=== PATIENT | male | born 1955 | race Caucasian/White ===

== ENCOUNTER → 2016-12-09 | Outpatient (CLI) | payer OTHER ==
[~2016-12-09] MED LIST: HYDR25TA5 PO; NAPR500T PO
--- NOTE | 2016-12-09 09:05 | RADRPT ---
EXAM DATE/TIME: 12/09/2016 08:17 [facility] COMPARISON: No previous studies available for comparison. INDICATIONS : No known injury severe lower back pain MEDICAL HISTORY : Arthritis. SURGICAL HISTORY : None. ENCOUNTER: Initial ACUITY: >1 year PAIN SCORE: 10/10 LOCATION: Lower back FINDINGS: There are five non-rib bearing vertebral bodies. The vertebral bodies are in normal alignment withou t evidence of subluxation or scoliosis. Diffuse mild degenerative changes. The posterior elements ar e intact without evidence of spondylolysis. The pedicles are intact. Bony mineralization is normal. No fracture is identified. CONCLUSION: 1. Mild degenerative changes without fracture. Ethan Rollins MD on December 09, 2016 at 9:03 Board Certified Radiologist. This report was verified electronically.
--- NOTE | 2016-12-09 09:11 | RADRPT ---
EXAM DATE/TIME: 12/09/2016 08:17 [facility] COMPARISON: No previous studies available for comparison. INDICATIONS : No known injury severe pain left hip. MEDICAL HISTORY : Arthritis. SURGICAL HISTORY : None. ENCOUNTER: Initial ACUITY: >1 year PAIN SCORE: 10/10 LOCATION: Left Hip FINDINGS: There are extensive degenerative changes about the left hip with bone articulating with bone and subc hondral collapse. Fracture is not appreciated. CONCLUSION: Degenerative change without fracture.. Ricardo Saunders MD FACR on December 09, 2016 at 9:09 Board Certified Radiologist. This report was verified electronically.
--- NOTE | 2016-12-09 09:15 | RADRPT ---
EXAM DATE/TIME: 12/09/2016 08:17 [facility] COMPARISON: No previous studies available for comparison. INDICATIONS : No known injury severe hip pain unable to walk very well. MEDICAL HISTORY : Arthritis. SURGICAL HISTORY : None. ENCOUNTER: Initial ACUITY: >1 year PAIN SCORE: 10/10 LOCATION: Right Hip FINDINGS: Extensive degenerative changes are present about the right hip with bone articulating with bone. Ali gnment is anatomic. Fractures is not appreciated. CONCLUSION: Degenerative changes, negative for fracture.. Ricardo Saunders MD FACR on December 09, 2016 at 9:10 Board Certified Radiologist. This report was verified electronically.
== END ==
LOC: HRAD 07:36
PROVIDERS: ATTEND Family Medicine
DX: M25.559 Pain in unspecified hip (principal); G89.29 Other chronic pain; M54.5 Low back pain
CPT/HCPCS: 72110; 73502

== ENCOUNTER 2018-02-10 06:35 | Observation (INO) | payer OTHER ==
[2018-02-10] VITALS (11 sets, daily range): BP systolic 125–184; BP diastolic 73–105; PULSE 82–102; RESP 17–18; TEMP 96–97.9; O2SAT 96–98
[~2018-02-10] VITALS: Ht 182.9 cm; Wt 117.5 kg
[~2018-02-10 06:35] MED LIST changes: -NAPR500T PO; +NAPR500T2 PO
[2018-02-10] MEDS ORDERED: LISI-515 PO (06:48)
--- NOTE | 2018-02-10 07:14 | PD ---
HPI Chief Complaint: GI Complaint Time Seen by Provider: 06:57 Travel History International Travel<30 days: No Contact w/Intl Traveler<30days: No Traveled to known affect area: No History of Present Illness HPI Patient is a 62 year old male who comes in complaining of substernal chest pain. He says it started this morning, about 2-3 hours ago. He says it is a "nagging pain," and he is not sure if it is indigestion. He reports increased belching and some diaphoresis. He says he had pain like this once before, about a month ago, but it went away on its own. He denies shortness of breath or nausea. He denies cough or cold symptoms. Nothing seems to make the pain better or worse. Severity is mild to moderate. PFSH Past Medical History Diminished Hearing: No Hypertension: Yes Tetanus Vaccination: Unknown Influenza Vaccination: Yes Past Surgical History Abdominal Surgery: Yes Cholecystectomy: Yes Joint Replacement: Yes (rt hip) Social History Alcohol Use: No Tobacco Use: No Substance Use: No Allergies-Medications (Allergen,Severity, Reaction): Coded Allergies: No Known Allergies (Unverified Allergy, Unknown, 02/10/18) Reported Meds & Prescriptions Reported Meds & Active Scripts Active Reported Lisinopril 20 Mg Tab 20 Mg PO DAILY Review of Systems Except as stated in HPI: all other systems reviewed are Neg General / Constitutional: No: Fever, Chills HENT: No: Headaches, Lightheadedness Cardiovascular: Positive: Chest Pain or Discomfort Respiratory: No: Shortness of Breath Gastrointestinal: No: Nausea, Vomiting Musculoskeletal: No: Edema Skin: No Rash, No Change in Pigmentation Neurologic: No: Weakness, Dizziness Physical Exam Narrative GENERAL: Awake and alert, in no acute distress. SKIN: Mild diaphoresis, no signs of infection. HEAD: Atraumatic. Normocephalic. EYES: Pupils equal and round. No scleral icterus. EOMI. ENT: Mucous membranes pink and moist. NECK: Trachea midline. No JVD. CARDIOVASCULAR: Regular rate and rhythm. No murmur appreciated. RESPIRATORY: No accessory muscle use. Clear to auscultation. Breath sounds equal bilaterally. GASTROINTESTINAL: Abdomen soft, non-tender, nondistended. MUSCULOSKELETAL: No obvious deformities. No clubbing. No cyanosis. No edema. NEUROLOGICAL: Awake and alert. No obvious cranial nerve deficits. Motor grossly within normal limits. Normal speech. PSYCHIATRIC: Appropriate mood and affect; insight and judgment normal. Data Data Last Documented VS Vital Signs Date Time Temp Pulse Resp B/P (MAP) Pulse Ox O2 Delivery O2 Flow Rate FiO2 02/10/18 07:42 18 02/10/18 07:09 158/94 (115) 170/94 (119) 02/10/18 07:06 96 Room Air 02/10/18 07:00 89 02/10/18 06:35 97.9 Orders Orders Electrocardiogram (02/10/18 ) Electrocardiogram (02/10/18 07:01) Ckmb (Isoenzyme) Profile (02/10/18 07:01) Complete Blood Count With Diff (02/10/18 07:01) Comprehensive Metabolic Panel (02/10/18 07:01) Prothrombin Time / Inr (Pt) (02/10/18 07:01) Act Partial Throm Time (Ptt) (02/10/18 07:01) Troponin I (02/10/18 07:01) Lipase (02/10/18 07:01) Chest, Single Ap (02/10/18 07:01) Ecg Monitoring (02/10/18 07:01) Bilateral Bp Monitoring (02/10/18 07:01) Iv Access Insert/Monitor (02/10/18 07:01) Oximetry (02/10/18 07:01) Oxygen Administration (02/10/18 07:01) Aspirin Chew (Aspirin Chew) (02/10/18 07:15) Sodium Chloride 0.9% Flush (Ns Flush) (02/10/18 07:15) Nitroglycerin Sl (Nitrostat Sl) (02/10/18 07:15) Sodium Chlorid 0.9% 500 Ml Inj (Ns 500 M (02/10/18 08:30) Morphine Inj (Morphine Inj) (02/10/18 08:30) Morphine Inj (Morphine Inj) (02/10/18 08:45) Labs Laboratory Tests Test 02/10/18 07:20 White Blood Count 13.1 TH/MM3 Red Blood Count 5.45 MIL/MM3 Hemoglobin 15.6 GM/DL Hematocrit 46.6 % Mean Corpuscular Volume 85.5 FL Mean Corpuscular Hemoglobin 28.7 PG Mean Corpuscular Hemoglobin Concent 33.5 % Red Cell Distribution Width 12.5 % Platelet Count 295 TH/MM3 Mean Platelet Volume 7.9 FL Neutrophils (%) (Auto) 79.3 % Lymphocytes (%) (Auto) 12.5 % Monocytes (%) (Auto) 5.2 % Eosinophils (%) (Auto) 2.3 % Basophils (%) (Auto) 0.7 % Neutrophils # (Auto) 10.4 TH/MM3 Lymphocytes # (Auto) 1.6 TH/MM3 Monocytes # (Auto) 0.7 TH/MM3 Eosinophils # (Auto) 0.3 TH/MM3 Basophils # (Auto) 0.1 TH/MM3 CBC Comment DIFF FINAL Differential Comment Prothrombin Time 10.0 SEC Prothromb Time International Ratio 1.0 RATIO Activated Partial Thromboplast Time 28.1 SEC Blood Urea Nitrogen 27 MG/DL Creatinine 1.10 MG/DL Random Glucose 108 MG/DL Total Protein 8.0 GM/DL Albumin 3.6 GM/DL Calcium Level 9.1 MG/DL Alkaline Phosphatase 51 U/L Aspartate Amino Transf (AST/SGOT) 11 U/L Alanine Aminotransferase (ALT/SGPT) 24 U/L Total Bilirubin 0.5 MG/DL Sodium Level 136 MEQ/L Potassium Level 4.1 MEQ/L Chloride Level 103 MEQ/L Carbon Dioxide Level 27.1 MEQ/L Anion Gap 6 MEQ/L Estimat Glomerular Filtration Rate 68 ML/MIN Total Creatine Kinase 74 U/L Troponin I 0.02 NG/ML Lipase 99 U/L MDM Medical Decision Making Medical Screen Exam Complete: Yes Emergency Medical Condition: Yes Medical Record Reviewed: Yes Interpretation(s) ECG shows NSR at a rate of 92, no ST elevation or depression, normal intervals Differential Diagnosis ACS versus NSTEMI versus STEMI Narrative Course Patient is a 62-year-old male who comes in complaining of substernal chest pain. Exam shows mild diaphoresis, no other acute abnormalities. IV established, labs sent. Patient given aspirin, nitro. He reports improvement of his pain from 7-3. Labs show evidence of mild dehydration, he was given 500 mL's of normal saline. Troponin is negative. Given 2 mg of morphine for continued pain. Chest x-ray shows no acute abnormalities. Last 24 hours Impressions Chest X-Ray 02/10/18 0701 Signed Impressions: Service Date/Time: Saturday, February 10, 2018 07:04 - CONCLUSION: No acute disease. Derek Olivares MD He will be placed in chest pain center for further management. Diagnosis Primary Impression: Chest pain Qualified Codes: R07.9 - Chest pain, unspecified Admitting Information Admitting Physician Requests: Temitope Warner MD February 10, 2018 07:14
[2018-02-10] MEDS ORDERED: ASPIRIN 81 MG CHEW TAB PO ONE (07:15)
[2018-02-10] MEDS ORDERED: SODIUM CHLORIDE 0.9% FLUSH 10 ML FLUSH IVF PRN (07:15)
[2018-02-10] MEDS ORDERED: NITROGLYCERIN 0.4 MG SL 25 TABS/BTL SL ONE (07:15)
[2018-02-10 07:27] LABS: AUTOMATED NEUTROPHIL # 10.4 TH/MM3 (1.8-7.7); BASOPHIL # 0.1 TH/MM3 (0-0.2); BASOPHIL % 0.7 % (0.0-2.0); EOSINOPHIL # 0.3 TH/MM3 (0-0.4); EOSINOPHIL % 2.3 % (0.0-4.0); HEMATOCRIT 46.6 % (39.0-51.0); HEMOGLOBIN 15.6 GM/DL (13.0-17.0); LYMPH % 12.5 % (9.0-44.0); LYMPHOCYTE # 1.6 TH/MM3 (1.0-4.8); MEAN CELL VOLUME 85.5 FL (80.0-100.0); MEAN CORPUSCULAR HEMOGLOBIN 28.7 PG (27.0-34.0); MEAN CORPUSCULAR HGB CONC 33.5 % (32.0-36.0); MEAN PLATELET VOLUME 7.9 FL (7.0-11.0); MONO % 5.2 % (0.0-8.0); MONOCYTE # 0.7 TH/MM3 (0-0.9); NEUT % 79.3 % (16.0-70.0); PLATELET COUNT 295 TH/MM3 (150-450); RED BLOOD COUNT 5.45 MIL/MM3 (4.50-5.90); RED CELL DISTRIBUTION WIDTH 12.5 % (11.6-17.2); WHITE BLOOD COUNT 13.1 TH/MM3 (4.0-11.0)
[2018-02-10 07:35] LABS: CHLORIDE 103 MEQ/L (98-107); SODIUM (NA) 136 MEQ/L (136-145)
[2018-02-10 07:39] LABS: CALCIUM 9.1 MG/DL (8.5-10.1)
[2018-02-10 07:40] LABS: ALBUMIN 3.6 GM/DL (3.4-5.0); BICARBONATE 27.1 MEQ/L (21.0-32.0); BLOOD UREA NITROGEN 27 MG/DL (7-18); GLUCOSE,RANDOM 108 MG/DL (74-106)
--- NOTE | 2018-02-10 07:41 | RADRPT ---
EXAM DATE/TIME: 02/10/2018 07:04 [facility] COMPARISON: No previous studies available for comparison. INDICATIONS : Chest pain. MEDICAL HISTORY : Hypertension. SURGICAL HISTORY : None. ENCOUNTER: Initial ACUITY: 1 day PAIN SCORE: 8/10 LOCATION: Bilateral chest FINDINGS: A single view of the chest demonstrates the lungs to be symmetrically aerated without evidence of mas s, infiltrate or effusion. The cardiomediastinal contours are unremarkable. Osseous structures are intact. CONCLUSION: No acute disease. Derek Olivares MD on February 10, 2018 at 7:39 Board Certified Radiologist. This report was verified electronically.
[2018-02-10 07:42] LABS: ALT (GPT) 24 U/L (12-78); AST (GOT) 11 U/L (15-37); GLOMERULAR FILTRATION RATE 68 ML/MIN (>89)
[2018-02-10 07:44] LABS: TOTAL BILIRUBIN ADULT 0.5 MG/DL (0.2-1.0)
[2018-02-10 07:45] LABS: ALKALINE PHOSPHATASE 51 U/L (45-117)
[2018-02-10 07:47] LABS: TROPONIN I 0.02 NG/ML (0.02-0.05)
--- NOTE | 2018-02-10 08:25 | EKG ---
Date Performed: 02/10/2018 Time Performed: 07:04:24 PTAGE: 62 years EKG: Sinus rhythm NORMAL ECG NO PREVIOUS TRACING DOCTOR: Constantin Sy Interpretating Date/Time 02/10/2018 08:24:58
[2018-02-10] MEDS ORDERED: SODIUM CHLORID 0.9% 500 ML INJ 500 ML IV ONE (08:30)
[2018-02-10] MEDS ORDERED: MORPHINE SULFATE 2 MG/ML SYRINGE IV PUSH ONE (08:30)
[2018-02-10] MEDS ORDERED: MORPHINE SULFATE 4 MG/ML INJ IV ONE (08:45)
[2018-02-10] MEDS ORDERED: REGADENOSON INJ 0.4 MG/5 ML SYR IV ONE (09:04)
[2018-02-10] MEDS ORDERED: SODIUM CHLORIDE 0.9% FLUSH 10 ML FLUSH IV FLUSH PRN (09:15)
[2018-02-10 11:37] LABS: TROPONIN I 0.02 NG/ML (0.02-0.05)
--- NOTE | 2018-02-10 11:51 | EKG ---
Date Performed: 02/10/2018 Time Performed: 11:05:24 PTAGE: 62 years EKG: Baseline artifact present Sinus rhythm EARLY REPOLARIZATION BORDERLINE ECG No significant change from prior electrocardiogram. PREVIOUS TRACING : 02/10/2018 09.13 DOCTOR: Constantin Sy Interpretating Date/Time 02/10/2018 11:50:26
--- NOTE | 2018-02-10 12:38 | HHI.HP ---
[facility] Service [facility] Primary Care Physician Ford Gomez MD Admission Diagnosis Chest Pain Diagnoses: (1) Chest pain Chief Complaint: Chest pain Travel History International Travel<30 Days: No Contact w/Intl Traveler <30 Da: No Traveled to Known Affected Are: No History of Present Illness This is a pleasant 62-year-old male patient with a known medical history of hypertension who presented to the ED with complaints of chest pain. Patient was sleeping and awoken out of sleep at 4 AM this morning due to midsternal chest pain. Patient characterizes the pain as pressure-like in nature, constant and rated an 8 out of 10 at its worst on pain scale. Patient denies any associated nausea, vomiting, shortness of breath or diaphoresis. Denies any radiation of pain. States that the pain becomes worse with deep breathing. Patient states that when the chest pressure occurred this morning he took aspirin and his blood pressure medicines which somewhat relieved the pain as well IV morphine in ED. it should be noted that patient states he did not take his blood pressure medicine yesterday. Blood pressure was significantly elevated upon presentation. Patient also states that he does have a history of GERD when he eats spicy foods and was not sure if this was related to indigestion. Patient does state that he is had this sensation before roughly a month ago and it went away on its own. Patient had a bowel movement today. Denies any diarrhea, nausea or vomiting. Patient did undergo a cardiac stress test in 2005 which was reportedly unremarkable. PCP is Dr. Gomez, last seen within the few months with no changes in medicines. Denies any recent illness including fever, chills, cough, shortness of breath, abdominal pain, nausea, vomiting, diarrhea or dysuria. 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 Review of Systems Constitutional: DENIES: Fatigue, Fever, Chills Endocrine: DENIES: Polydipsia Eyes: DENIES: Blurred vision, Diplopia Respiratory: DENIES: Cough, Sputum production, Shortness of breath Cardiovascular: COMPLAINS OF: Chest pain Gastrointestinal: DENIES: Abdominal pain, Black stools, Bloody stools, Constipation, Diarrhea, Nausea, Vomiting Musculoskeletal: DENIES: Joint pain Immunologic/allergic: DENIES: Eczema Psychiatric: DENIES: Anxiety Except as stated in HPI: all other systems reviewed are Neg Past Family Social History Past Medical History Hypertension GERD Past Surgical History Cholecystectomy Right hip replacement Reported Medications Active Reported Lisinopril 20 Mg Tab 20 Mg PO DAILY Allergies: Coded Allergies: No Known Allergies (Unverified Allergy, Unknown, 02/10/18) Active Ordered Medications Current Medications Medications (Trade) Dose Ordered Sig/Milka Route Start Time Stop Time Status Last Admin (NS Flush) 2 ml UNSCH PRN IVF 02/10/18 07:15 (NS Flush) 2 ml UNSCH PRN IV FLUSH 02/10/18 09:15 (NS Flush) 2 ml BID IV FLUSH 02/10/18 21:00 (Prinivil) 20 mg DAILY PO 02/11/18 09:00 Family History Maternal medical history significant for kidney disease. Father had a history of unspecified cancer. Denies any history of cardiovascular disease in family. Social History Patient denies any current or history of tobacco abuse. Does admit to occasional alcohol use. Denies illicit drug use. Physical Exam Vital Signs Vital Signs Date Time Temp Pulse Resp B/P (MAP) Pulse Ox O2 Delivery O2 Flow Rate FiO2 02/10/18 10:36 82 18 128/76 (93) 96 02/10/18 10:36 02/10/18 09:44 16 02/10/18 09:00 18 02/10/18 09:00 83 18 125/73 (90) 98 Room Air 02/10/18 08:00 82 18 140/76 (97) 98 Room Air 02/10/18 07:42 18 02/10/18 07:09 158/94 (115) 170/94 (119) 02/10/18 07:06 96 Room Air 02/10/18 07:06 96 Room Air 02/10/18 07:00 18 02/10/18 07:00 89 18 175/93 (120) 98 Room Air 02/10/18 06:51 18 02/10/18 06:35 97.9 102 18 184/92 (122) 97 Physical Exam GENERAL: Well-developed, well-nourished patient in NAD. SKIN: Warm and dry. No rash. HEAD: Normocephalic. Atraumatic. EYES: Pupils equal and round. No scleral icterus. No injection or drainage. ENT: No nasal bleeding or discharge. Mucous membranes pink and moist. NECK: Supple. Trachea midline. CARDIOVASCULAR: Regular rate and rhythm. S1, S2 noted. No murmur appreciated. No chest pain to palpation RESPIRATORY: No accessory muscle use. Clear to auscultation. Breath sounds equal bilaterally. GASTROINTESTINAL: Abdomen soft, non-tender, nondistended. Normoactive bowel sounds x4. MUSCULOSKELETAL: No obvious deformities. Extremities without clubbing, cyanosis , or edema. NEUROLOGICAL: Awake and alert. No obvious cranial nerve deficits. Motor grossly within normal limits. 5/5 muscle strength in bilateral upper and lower extremities. Normal speech. PSYCHIATRIC: Appropriate mood and affect; insight and judgment normal. Laboratory Laboratory Tests Test 02/10/18 07:20 02/10/18 11:00 White Blood Count 13.1 Red Blood Count 5.45 Hemoglobin 15.6 Hematocrit 46.6 Mean Corpuscular Volume 85.5 Mean Corpuscular Hemoglobin 28.7 Mean Corpuscular Hemoglobin Concent 33.5 Red Cell Distribution Width 12.5 Platelet Count 295 Mean Platelet Volume 7.9 Neutrophils (%) (Auto) 79.3 Lymphocytes (%) (Auto) 12.5 Monocytes (%) (Auto) 5.2 Eosinophils (%) (Auto) 2.3 Basophils (%) (Auto) 0.7 Neutrophils # (Auto) 10.4 Lymphocytes # (Auto) 1.6 Monocytes # (Auto) 0.7 Eosinophils # (Auto) 0.3 Basophils # (Auto) 0.1 CBC Comment DIFF FINAL Differential Comment Prothrombin Time 10.0 Prothromb Time International Ratio 1.0 Activated Partial Thromboplast Time 28.1 Blood Urea Nitrogen 27 Creatinine 1.10 Random Glucose 108 Total Protein 8.0 Albumin 3.6 Calcium Level 9.1 Alkaline Phosphatase 51 Aspartate Amino Transf (AST/SGOT) 11 Alanine Aminotransferase (ALT/SGPT) 24 Total Bilirubin 0.5 Sodium Level 136 Potassium Level 4.1 Chloride Level 103 Carbon Dioxide Level 27.1 Anion Gap 6 Estimat Glomerular Filtration Rate 68 Total Creatine Kinase 74 64 Troponin I 0.02 0.02 Lipase 99 Result Diagram: 02/10/1871902/10/18719 Imaging Last Impressions Chest X-Ray 02/10/18 07 Signed Impressions: Service Date/Time: Saturday, February 10, 2018 07:04 - CONCLUSION: No acute disease. Derek Olivares MD Septic Shock Reassessment Septic shock perfusion: reassessment completed Caprini VTE Risk Assessment Caprini VTE Risk Assessment: Mod/High Risk (score >= 2) Caprini Risk Assessment Model Point Value = 1 Point Value = 2 Point Value = 3 Point Value = 5 Age 41-60 Minor surgery BMI > 25 kg/m2 Swollen legs Varicose veins or History of unexplained or recurrent spontaneous Oral contraceptives or hormone replacement Sepsis (< 1 month) Serious lung disease, including pneumonia (< 1 month) Abnormal pulmonary function Acute myocardial infarction Congestive heart failure (< 1 month) History of inflammatory bowel disease Medical patient at bed rest Age 61-74 Arthroscopic surgery Major open surgery (> 45 min) Laparoscopic surgery (> 45 min) Malignancy Confined to bed (> 72 hours) Immobilizing plaster cast Central venous access Age >= 75 History of VTE Family history of VTE Factor V Leiden Prothrombin [id number] Lupus anticoagulant Anticardiolipin antibodies Elevated serum homocysteine Heparin-induced thrombocytopenia Other congenital or acquired thrombophilia Stroke (< 1 month) Elective arthroplasty Hip, pelvis, or leg fracture Acute spinal cord injury (< 1 month) Prophylaxis Regimen Total Risk Factor Score Risk Level Prophylaxis Regimen 0-1 Low Early ambulation 2 Moderate Order ONE of the following: *Sequential Compression Device (SCD) *Heparin 5000 units SQ BID 3-4 Higher Order ONE of the following medications: *Heparin 5000 units SQ TID *Enoxaparin/Lovenox 40 mg SQ daily (WT < 150 kg, CrCl > 30 mL/min) *Enoxaparin/Lovenox 30 mg SQ daily (WT < 150 kg, CrCl > 10-29 mL/min) *Enoxaparin/Lovenox 30 mg SQ BID (WT < 150 kg, CrCl > 30 mL/min) AND/OR *Sequential Compression Device (SCD) 5 or more Highest Order ONE of the following medications: *Heparin 5000 units SQ TID (Preferred with Epidurals) *Enoxaparin/Lovenox 40 mg SQ daily (WT < 150 kg, CrCl > 30 mL/min) *Enoxaparin/Lovenox 30 mg SQ daily (WT < 150 kg, CrCl > 10-29 mL/min) *Enoxaparin/Lovenox 30 mg SQ BID (WT < 150 kg, CrCl > 30 mL/min) AND *Sequential Compression Device (SCD) Assessment and Plan Problem List: (1) Chest pain ICD Code: R07.9 - Chest pain, unspecified Status: Acute Plan: Patient has been admitted to the chest pain center for observation. Serial EKGs and serial troponins have been ordered for ruling out ACS purposes. Initial 2 troponins flat. Await third cardiac enzyme. EKG reviewed showing sinus rhythm with controlled heart rate, no ST changes to indicate any ischemia. Chest pain has improved with use of IV morphine in ED. Nitroglycerin as well and aspirin. Patient was also given 500 mL IV bolus in ED. Blood pressure was significantly elevated upon presentation, this is now controlled. Lisinopril restarted from home. Will monitor blood pressure trends. Chest x-ray reviewed showing no acute cardiopulmonary disease. Cardiac telemetry continued, monitor for any arrhythmias. If ACS ruled out by third cardiac enzyme, patient will undergo a cardiac nuclear stress test to further rule out any ischemia. Patient is agreeable to this plan and stable. Further hospitalization and treatment plan will depend on nuclear imaging results. (2) Hypertension ICD Code: I10 - Essential (primary) hypertension Plan: Continue blood pressure trends. Continue home medications. Adjust as needed. Assessment and Plan Patient underwent a cardiac nuclear stress test. Results reviewed showing an EF of 67% with intact wall motion. No evidence of stress-induced ischemia noted. Low risk. A small size fixed perfusion defect apical inferior lateral wall may represent myocardial scar or diaphragmatic attenuation. Patient given report and encouraged follow-up with PCP. Chest pain has now resolved. No further complaints. Vital signs are stable although blood pressure has been mildly elevated throughout stay. Started on HCTZ with potassium supplementation. Encouraged patient to keep blood pressure diary and follow-up with primary care physician upon discharge. Patient is stable at this time and agreeable to the plan. Problem Qualifiers (1) Chest pain: Qualified Codes: R07.9 - Chest pain, unspecified DorothyAureTemitopemichele BOWLES February 10, 2018 12:38
[2018-02-10 14:31] LABS: TROPONIN I 0.02 NG/ML (0.02-0.05)
--- NOTE | 2018-02-10 15:17 | EKG ---
Date Performed: 02/10/2018 Time Performed: 09:13:56 PTAGE: 62 years EKG: Sinus rhythm NORMAL ECG No significant change from prior electrocardiogram. PREVIOUS TRACING : 02/10/2018 07.04 DOCTOR: Constantin Sy Interpretating Date/Time 02/10/2018 15:16:31
--- NOTE | 2018-02-10 16:44 | RADRPT ---
EXAM DATE/TIME: 02/10/2018 14:53 [facility] COMPARISON: No previous studies available for comparison. INDICATIONS : Substernal chest pain with diaphoresis. Angina. DOSE: 35 mCi Tc99m Myoview at stress. 11 mCi Tc99m Myoview at rest. 0.4 mg Lexiscan STRESS SYMPTOMS: Dyspnea and head pressure. EJECTION FRACTION: 67% MEDICAL HISTORY : Hypertension. SURGICAL HISTORY : Cholecystectomy. Right hip. ENCOUNTER: Initial ACUITY: 1 day PAIN SCALE: 4/10 LOCATION: Substernal chest TECHNIQUE: The patient underwent pharmacologic stress with infusion of prescribed dose. Continuous ECG tracing was monitored during stress. Gated SPECT imaging was performed after stress and conventional SPECT i maging was performed at rest. The examination was performed on a SPECT/CT scanner, both attenuation and non-corrected datasets were reviewed. FINDINGS: DISTRIBUTION: The maximum perfused segment at stress is in the anterobasal wall. PERFUSION STUDY: There is a small size fixed perfusion defect involving the inferior lateral apical segment without ev idence of redistribution. Regional variations in perfusion in the remainder of the myocardial segmen ts is within 25%. No evidence of redistribution. GATED STUDY: There is intact wall motion and thickening without hypokinetic or dyskinetic segments. CONCLUSION: 1. Small size fixed perfusion defect apical inferolateral wall may represent myocardial scar or diaph ragmatic attenuation. 2. No evidence of stress-induced ischemia. 3. Intact wall motion with 67% ejection fraction. RISK CATEGORY: Low (<1% Annual Mortality Rate) Karl Nunn MD on February 10, 2018 at 16:40 Board Certified Radiologist. This report was verified electronically.
[2018-02-10] MEDS ORDERED: POTA8TAB PO (16:54)
[2018-02-10] MEDS ORDERED: ASPI81 CHEW (16:54)
[2018-02-10] MEDS ORDERED: HYDR12.56 PO (16:54)
--- NOTE | 2018-02-10 16:54 | HHI.DCPOC ---
Discharge Care Plan Diagnosis: (1) Chest pain (2) Hypertension Goals to Promote Your Health * To prevent worsening of your condition and complications * To maintain your health at the optimal level Directions to Meet Your Goals Take your medications as prescribed Follow your dietary instruction Follow activity as directed Keep your appointments as scheduled Take your immunizations and boosters as scheduled If your symptoms worsen call your PCP, if no PCP go to Urgent Care Center or Emergency Room Smoking is Dangerous to Your Health. Avoid second hand smoke Call the 24-hour hour crisis hotline for domestic abuse at Temitope De La Cruz February 10, 2018 16:54
[2018-02-10] MEDS ORDERED: ALUMINUM/MAGNESIUM/SIMETH 30 ML CUP PO ONE (17:15)
[2018-02-10] MEDS ORDERED: SODIUM CHLORIDE 0.9% FLUSH 10 ML FLUSH IV FLUSH SCH (21:00)
--- NOTE | 2018-02-11 08:55 | EKG ---
Date Performed: 02/10/2018 Time Performed: 14:02:13 PTAGE: 62 years EKG: Sinus rhythm EARLY REPOLARIZATION BORDERLINE ECG PREVIOUS TRACING : 02/10/2018 11.05 Since the previous tracing, no significant change noted DOCTOR: Nikolas Dietz Interpretating Date/Time 02/11/2018 08:50:33
[2018-02-11] MEDS ORDERED: ASPIRIN 81 MG CHEW TAB CHEW SCH (09:00)
[2018-02-11] MEDS ORDERED: LISINOPRIL 20 MG TAB PO SCH (09:00)
--- NOTE | 2018-02-11 11:16 | TR ---
Date Performed: 02/10/2018 Time Performed: 15:39:40 DOCTOR: Edson Mcdaniel DRUG LIST: CLINICAL HISTORY: REASON FOR TEST: Chest pain REASON FOR ENDING: OBSERVATION: CONCLUSION: COMMENTS: Lexiscan stress test was performed under standard four minute protocol. Radionuclide was injected one minute prior to ending the test. No electrocardiographic abormalities were present t o suggest ischemia. Nuclear imaging and interpretation are pending.
== END 2018-02-10 18:43 | disposition home or self-care (01) ==
LOC: PHED 06:35 → PHEDA 09:03 → PH3A 10:34
PROVIDERS: ADMIT Hospitalist; ATTEND Hospitalist
DX: R07.89 Other chest pain (principal); R61 Generalized hyperhidrosis; E86.0 Dehydration; I10 Essential (primary) hypertension; K21.9 Gastro-esophageal reflux disease without esophagitis; Z79.899 Other long term (current) drug therapy
CPT/HCPCS: 71045; 78452; 80053; 82550; 83690; 84484; 85025; 85610; 85730; 93005; 93017; A9502; J2270; J2785; J7040; 96361; 96374; G0378